=== PATIENT | male | born 2000 | race Two or more races ===

== ENCOUNTER 2025-08-02 23:53 | Emergency (ER) | payer OTHER ==
[~2025-08-02] VITALS: Ht 185.4 cm; Wt 131.0 kg
[2025-08-03 00:01] VITALS: TEMP 37.1; O2SAT 100
[2025-08-03 00:54] LABS: BASOPHILS % 0.3 % (0.0-2.0); EOSINOPHILS % 0.3 % (0.0-5.0); HEMATOCRIT. 43.4 % (42.0-52.0); HEMOGLOBIN. 14.9 g/dL (14.0-18.0); LYMPHOCYTES % 11.2 % (20.0-50.0); MEAN PLATELET VOLUME 7.7 fl (7.4-10.4); MONOCYTES % 4.7 % (2.0-8.0); NEUTROPHILS % 83.5 % (40.0-76.0); PLATELET 297 x1000/uL (130-400); RED BLOOD CELL COUNT 5.22 mill/uL (4.7-6.1); RED CELL DISTRIBUTION WIDTH 13.9 % (11.6-14.6)
[2025-08-03 01:06] LABS: INR 1.0
[2025-08-03 01:12] LABS: C REACTIVE PROTEIN HIGH SENS 1.35 mg/l (<1.00); CREATININE 1.0 mg/dL (0.6-1.3); TROPONIN I HIGH SENSITIVITY 10 ng/L (3.0-53); UREA NITROGEN BLOOD 8 mg/dL (9-23)
[2025-08-03 01:13] LABS: ETHANOL BLOOD < 10 mg/dL (<10)
[2025-08-03 01:14] LABS: ASPARTATE AMINOTRANSFERASE 24 IU/L (<34); BILIRUBIN DIRECT 0.1 mg/dL (<=3.0)
[2025-08-03 01:15] LABS: BILIRUBIN TOTAL 0.5 mg/dL (0.1-1.0); PROTEIN TOTAL 7.0 g/dL (6.0-8.3)
[2025-08-03] MEDS ORDERED: ACETAMINOPHEN 325MG TABLET PO NR (01:30)
[2025-08-03 01:33] LABS: ERYTHROCYTE SEDIMENTATION RATE 11 mm/hr (0-15)
[2025-08-03 03:57] LABS: TROPONIN I HIGH SENSITIVITY 16 ng/L (3.0-53)
[2025-08-03] MEDS ORDERED: BACL-141 MT (04:04)
[2025-08-03] MEDS ORDERED: IBUP-1455 MT (04:04)
[2025-08-03] MEDS ORDERED: ACET-2708 MT (04:08)
[2025-08-03 05:49] VITALS: TEMP 98.8
[2025-08-03] MEDS: ACETAMINOPHEN 325MG TABLET PO NR (05:49)
[2025-08-03 05:59] VITALS: BP 138/88; PULSE 87; RESP 14; O2SAT 100
== END 2025-08-03 06:00 | disposition home or self-care (01) ==
LOC: ER 23:53
DX: R00.2 Palpitations (principal); F41.9 Anxiety disorder, unspecified
CPT/HCPCS: 36415; 71045; 80048; 80076; 80320; 83735; 84484; 85025; 85651; 86141; 99284; G0480